=== PATIENT | female | born 1965 | race Caucasian/White ===

== ENCOUNTER 2023-08-13 10:10 | Emergency (ER) | payer OTHER, SELFPAY ==
[2023-08-13 10:21] VITALS: BP 145/83; PULSE 78; RESP 17; TEMP 36.9; O2SAT 100
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
[2023-08-13] MEDS: IBUPROFEN 600 MG TABLET PO (12:31)
[2023-08-13] MEDS: ACETAMINOPHEN 500 MG TABLET 1000 MG PO (12:31)
[2023-08-13 12:48] VITALS: BP 141/82; PULSE 73; RESP 19; TEMP 36.8; O2SAT 100
== END 2023-08-13 12:50 | disposition home or self-care (01) ==
PROVIDERS: Emergency Provider Student in an Organized Health Care Education/Training Program
DX: M79.642 Pain in left hand (principal); V89.0XXA Person injured in unspecified motor-vehicle accident, nontraffic, initial encounter
CPT/HCPCS: 99282; A9270; L0140